=== PATIENT | male | born 1960 | race African-American/Black ===

== ENCOUNTER 2017-05-17 09:16 | Emergency (ER) | payer OTHER ==
[~2017-05-17] VITALS: Ht 170.2 cm; Wt 62.6 kg
[2017-05-17 11:19] VITALS: BP 146/90
== END 2017-05-17 11:25 | disposition home or self-care (01) ==
LOC: EME 09:16
DX: S01.01XD Laceration without foreign body of scalp, subsequent encounter (principal); F11.20 Opioid dependence, uncomplicated; F17.200 Nicotine dependence, unspecified, uncomplicated; R51 Headache; B19.20 Unspecified viral hepatitis C without hepatic coma
CPT/HCPCS: 99281; 99283

== ENCOUNTER 2018-03-24 20:41 | Emergency (ER) | payer OTHER ==
[~2018-03-24] VITALS: Ht 170.2 cm; Wt 71.8 kg
[2018-03-24 23:10] LABS: AMPHETAMINE NEGATIVE (500 ng/mL); BARBITURATES NEGATIVE (200 ng/mL); BENZODIAZEPINES NEGATIVE (150 ng/mL); BUPRENORPHINE NEGATIVE (10 ng/mL); COCAINE NEGATIVE (150 ng/mL); METHADONE NEGATIVE (200 ng/mL); METHAMPHETAMINE NEGATIVE (500 ng/mL); OPIATES (MORPHINE) NEGATIVE (100 ng/mL); OXYCODONE NEGATIVE (100 ng/mL); PHENCYCLIDINE NEGATIVE (25 ng/mL); PROPOXYPHENE NEGATIVE (300 ng/mL); THC CANNABINOIDS NEGATIVE (50 ng/mL); TRICYCLIC ANTIDEPRESSANTS NEGATIVE (300 ng/mL)
[2018-03-25 00:06] VITALS: BP 175/101
== END 2018-03-25 00:10 | disposition home or self-care (01) ==
LOC: EME 20:41
PROVIDERS: Physician Assistant
DX: S40.812A Abrasion of left upper arm, initial encounter (principal); S80.812A Abrasion, left lower leg, initial encounter; S80.811A Abrasion, right lower leg, initial encounter; V23.4XXA Motorcycle driver injured in collision with car, pick-up truck or van in traffic accident, initial encounter; Y92.410 Unspecified street and highway as the place of occurrence of the external cause; F10.129 Alcohol abuse with intoxication, unspecified; Y90.8 Blood alcohol level of 240 mg/100 ml or more; F17.200 Nicotine dependence, unspecified, uncomplicated
CPT/HCPCS: 99281; 99284; G0480